=== PATIENT | male | born 1990 ===

== ENCOUNTER 2019-12-09 14:58 | Emergency (ER) | payer SELFPAY ==
[2019-12-09 18:27] VITALS: O2SAT 99
[2019-12-09 18:30] VITALS: BP 127/65; TEMP 98
== END 2019-12-09 18:19 | disposition home or self-care (01) ==
LOC: ER 14:58
DX: R06.02 Shortness of breath (principal)
CPT/HCPCS: 36415; 71045; 80048; 80076; 80307; 81003; 83735; 83880; 84484; 85025; 85610; 93005; 99284; J7030